=== PATIENT | female | born 1930 | race Caucasian/White ===

== ENCOUNTER 2018-09-25 12:11 | Inpatient (IN) ==
[2018-09-25] MEDS ORDERED: DIPRIVAN 1% ONE (12:39)
[2018-09-25] MEDS ORDERED: XYLOCAINE-MPF 2% ONE (12:40)
[2018-09-25] MEDS ORDERED: LR 1,000 ML ONE (12:46)
--- NOTE | 2018-09-25 16:03 | HISTORY AND PHYSICAL ---
HISTORY: Ms. Ami Nguyen is an 87-year-old white female who has been experiencing mostly left- sided abdominal pain and also blood per rectum. Today, she was undergoing a colonoscopy per Dr. Morales which documented a colon cancer at the splenic flexure. We were asked to evaluate her for possible resection. Despite her age, she remains mentally intact. She lives with her in [place], and has a caregiver. PAST MEDICAL HISTORY: She has had breast cancer and underwent a mastectomy. After that surgery, she went to rehab for several weeks. She has also had an open cholecystectomy through an upper midline incision. Evidently, has had orthopedic surgery. She has had an appendectomy. MEDICATIONS: Include blood pressure medications, vitamins, calcium, and she takes insulin 12/17 7 units daily. She also takes Pepcid. ALLERGIES: No known drug allergies. SOCIAL HISTORY: She lives in [place]. She has a caregiver. Her is 89 years of age. FAMILY HISTORY: She has colon cancer in her family. PHYSICAL EXAMINATION: On exam, Ms. Ami Nguyen is a frail elderly white female. She is awake and alert, and cooperative. She has no jaundice. No oral lesions. No cervical or supraclavicular lymphadenopathy. Her heart has regular rate. Lungs were clear to auscultation and percussion bilaterally. Her abdomen is slightly protuberant. She has a well-healed upper midline incision. No evidence of hernia. There was no tenderness. I could not feel this colon mass. She had no costovertebral tenderness. I did not do a rectal exam. She did have palpable femoral pulses. She has no significant peripheral edema. Neurologically, no focal deficit. I was present during the colonoscopy and saw the tumor. We believe that it is in the splenic flexure. She has had a previous ultrasound which also suggested a colon mass. PLAN: We discussed treatment options. Despite her age, she is still interested in resection. It is a near obstructing tumor, and it would improve her symptoms. She understands this is major intra-abdominal surgery, and she may have to go to rehab after the procedure. We certainly discussed risks of surgery, which include bleeding, infection, anastomotic leak. She understands she is at increased risk because of her age and weakness. She wants to proceed. We will plan to admit her to the hospital because she has already had a bowel prep. We will continue IV fluids. Make her n.p.o. after midnight, and plan to do her procedure tomorrow late morning. cc: Brenda Connelly MD
[2018-09-25] MEDS ORDERED: INVANZ 1 GM/NS 1 GM/50 ML IVPB IV ONE (17:00)
--- NOTE | 2018-09-25 17:20 | OPERATIVE NOTE ---
PROCEDURE DATE: 09/25/2018 PROCEDURE: Colonoscopy and biopsy. PREOPERATIVE DIAGNOSIS: Abnormal ultrasound. POSTOPERATIVE DIAGNOSIS: Tumor in the splenic flexure area, biopsied. HISTORY: This is an 87-year-old white female referred to me by Dr. Hilliard. She had an ultrasound of the abdomen done and a lesion was seen, suspected of colon mass. After lengthy discussion with the patient, it was decided to proceed with colonoscopy to get a better idea about the mass and depending on the findings, further plans made. DESCRIPTION OF PROCEDURE: Informed consent was obtained from the patient. Procedure, risks, benefits, alternatives were explained in layman's terms, she understood. All of her pertinent questions were answered. Patient was brought to the endoscopy unit and was premedicated as per Anesthesia. After adequate sedation, while she was lying in left lateral position, the digital rectal exam was performed which revealed some blood-tinged liquid in the rectum but no masses were was felt. Scope was then gently introduced into the rectum and advanced under direct vision into the colon. I did see some secretion with blood in it which was suctioned out easily. I was able to advance the scope all the way up to the splenic flexure where I saw a circumferential ulcerated mass and luminal stricture. The mass was about 8-10 cm long. With gentle pressure, I was able to passed through the mass into the proximal colon and I was able to advance it all the way up to the ascending colon. Further advancement was not possible because of the tortuosity and I did not want to apply any pressure at the flexure. The scope was withdrawn back into the mass. I did not see any polyps or tumors in the proximal colon prior to the mass. The mass was again located and multiple biopsies were obtained from the mass using a cold biopsy forceps. I used a sclerotherapy needle and injected Spot to nyla the area in aliquots of 0.5 mL and a total of 2 mL were injected in and around the mass to tattoo the area for future reference. The scope was then withdrawn into the rectum. Rectum was examined in both straight and retroflexed views, which revealed no pathology. Scope was then removed. Patient tolerated the procedure well. No complications noted. Patient was then transferred to the recovery area in a stable condition. IMPRESSION: Colon mass at the splenic flexure, biopsied and tattooed. I have discussed the case on the phone with the patient's and he was in agreement for possible surgical intervention if needed. I have spoken to Dr. Braden Connelly who has kindly consented to see the patient in the outpatient recovery area and after discussion, he will decide about surgery when it is mutually convenient. cc: MD Brenda Dang MD Sammy Becdach, MD MTDD
[2018-09-25] MEDS: LR 1,000 ML IV SCH ×2 (17:59→20:41)
[2018-09-25 18:53] LABS: URINE SOURCE CLEAN CATCH
[2018-09-25 18:56] LABS: BILIRUBIN URINE NEGATIVE (NEGATIVE); BLOOD URINE LARGE (NEGATIVE); COLOR YELLOW; GLUCOSE URINE NEGATIVE (NEGATIVE); KETONE URINE 60 mg/dL (NEGATIVE); LEUKOCYTES URINE SMALL (NEGATIVE); NITRITE URINE NEGATIVE (NEGATIVE); PH URINE 6.5; PROTEIN URINE TRACE mg/dL (NEGATIVE); SP GRAVITY URINE 1.016; TURBIDITY URINE CLEAR (CLEAR); UROBILINOGEN URINE NORMAL (NORMAL)
[2018-09-25 19:11] LABS: UR EPITHELIAL CELLS <10 /HPF (<10); URINE BACTERIA NEGATIVE /HPF; URINE RBC TNTC /HPF (<10); URINE WBC 20-40 /HPF (<10); URINE YEAST NONE SEEN
[2018-09-25] MEDS: ULTRAM PO PRN (22:43)
[2018-09-26] MEDS: CATAPRES PO SCH (08:02)
[2018-09-26] MEDS: COZAAR PO SCH (08:02)
[2018-09-26] MEDS: LR 1,000 ML IV SCH (08:02)
[2018-09-26] MEDS ORDERED: NIMBEX ONE (08:31)
[2018-09-26] MEDS ORDERED: QUELICIN (DOSE) ONE (08:51)
[2018-09-26] MEDS ORDERED: SODIUM CHLORIDE 0.9% 0 ML ONE (08:51)
[2018-09-26] MEDS ORDERED: XYLOCAINE-MPF 2% ONE (08:51)
[2018-09-26] MEDS ORDERED: ROBINUL ONE ×2 (08:51→12:59)
[2018-09-26] MEDS ORDERED: NEO-SYNEPHRINE ONE ×2 (08:51→13:03)
[2018-09-26] MEDS ORDERED: FENTANYL ONE (08:55)
[2018-09-26] MEDS ORDERED: DIPRIVAN 1% ONE (08:55)
[2018-09-26 10:34] LABS: HEMATOCRIT 32.4 % (37.0-47.0); MCH 27.7 PG (27-31); MCHC 30.9 g/dL (33-37); MCV 89.8 FL (81-99); MPV 8.9 FL (7.4-10.4); RBC 3.61 XMIL (4.2-5.4); RDW 14.6 % (11.5-14.5); WBC 14.07 X1000 (4.8-10.8)
[2018-09-26] MEDS ORDERED: SODIUM CHLORIDE 0.9% 10 ML ONE ×2 (10:39→11:51)
[2018-09-26] MEDS ORDERED: AMIDATE ONE (10:42)
--- NOTE | 2018-09-26 10:45 | EKG Report ---
Test Performed on : 09/26/2018 10:15:03 AM Test Reason : per op Blood Pressure : / mmHG Vent. Rate : 065 BPM Atrial Rate : 065 BPM P-R Int : 160 ms QRS Dur : 130 ms QT Int : 438 ms P-R-T Axes : 066 056 079 degrees QTc Int : 455 ms Sinus rhythm. with occasional premature ventricular complexes. Right bundle branch block Abnormal ECG No previous ECGs available Confirmed by Wilfred GILBERT, Eb Roberson ([id number]) on 09/27/2018 9:05:59 AM
[2018-09-26 11:15] LABS: AGAP 11; ALB/GLOB RATIO 0.8; ALBUMIN 2.7 g/dL (3.5-5.0); ALKALINE PHOSPHATASE 71 U/L (32-104); BUN 5 mg/dL (8-22); CALCIUM 8.1 mg/dL (8.8-10.2); CHLORIDE 105 mmol/L (98-107); COSMO 281; CREATININE 0.4 mg/dL (0.5-0.9); ESTIMATED GFR > 60; GLUCOSE 102 mg/dL (70-104); GOT 11 U/L (10-30); GPT 5 U/L (10-36); POTASSIUM 3.5 mmol/L (3.5-5.1); SODIUM 142 mmol/L (136-145); TCO2 26 mmol/L (25-35); TOTAL BILIRUBIN 0.29 mg/dL (0.20-1.00); TOTAL PROTEIN 6.3 g/dL (6.3-8.3)
[2018-09-26 11:29] LABS: PHOSPHORUS 0.8 mg/dL (2.7-4.5)
[2018-09-26] MEDS ORDERED: INVANZ 1 GM/NS 1 GM/50 ML IVPB IV ONE (11:30)
[2018-09-26] MEDS ORDERED: MARCAINE 0.25% ONE (11:51)
[2018-09-26] MEDS ORDERED: EXPAREL 1.3% ONE (11:52)
[2018-09-26] MEDS ORDERED: ZOFRAN ONE (12:59)
[2018-09-26] MEDS ORDERED: NEOSTIGMINE ONE (13:01)
[2018-09-26 13:10] LABS: URINE SOURCE CATH
[2018-09-26 13:14] LABS: BILIRUBIN URINE NEGATIVE (NEGATIVE); BLOOD URINE NEGATIVE (NEGATIVE); COLOR YELLOW; GLUCOSE URINE NEGATIVE (NEGATIVE); KETONE URINE 60 mg/dL (NEGATIVE); LEUKOCYTES URINE NEGATIVE (NEGATIVE); NITRITE URINE NEGATIVE (NEGATIVE); PROTEIN URINE TRACE mg/dL (NEGATIVE); TURBIDITY URINE CLEAR (CLEAR); UROBILINOGEN URINE NORMAL (NORMAL)
[2018-09-26 13:15] LABS: UR EPITHELIAL CELLS <10 /HPF (<10); URINE BACTERIA NEGATIVE /HPF; URINE RBC <10 /HPF (<10); URINE WBC <10 /HPF (<10)
[2018-09-26] MEDS: LASIX PO SCH (13:16)
[2018-09-26] MEDS: PEPCID PO SCH (13:16)
[2018-09-26] MEDS: MORPHINE ONE ×2 (14:34→14:42)
--- NOTE | 2018-09-26 14:44 | OPERATIVE NOTE ---
PROCEDURE DATE: 09/26/2018 PREOPERATIVE DIAGNOSIS: Colon cancer, splenic flexure. POSTOPERATIVE DIAGNOSIS: Colon cancer, splenic flexure. PRINCIPAL PROCEDURE: Open left hemicolectomy with takedown of the splenic flexure. SURGEON: Brenda Connelly MD ANESTHESIA: General. ESTIMATED BLOOD LOSS: 150 mL. DRAINS: None. INDICATIONS: Ami Nguyen is an 87-year-old white female who was having abdominal symptoms. She underwent colonoscopy yesterday by Dr. Morales, which documented a near-obstructing colon cancer at the splenic flexure. We discussed treatment options, and she has decided on resection. FINDINGS: She had a large bulky colon cancer at the splenic flexure. We were able to mobilize it and resect it, using a left hemicolectomy. We did an end midtransverse colon to end sigmoid colon double-layer sewn anastomosis. She did not have any evidence of metastatic spread intra- abdominally. She did not have any obviously enlarged lymph nodes. The tumor was not stuck to any surrounding tissue. DESCRIPTION OF PROCEDURE: The patient was brought to the operating room, placed supine, received general anesthesia, and was intubated. Actually she had some kyphosis of her back, and we had to elevate her head, which made this operation little bit more difficult because her abdomen was not totally extended. We placed a Loja catheter tube. Anesthesia did a TAP block. Her abdomen was prepped and draped in a sterile field. I used an Ioban on the skin. She had had a previous midline incision and I used the same scar to enter her abdomen. I used a #10 blade scalpel to incise the skin and then used the cautery to the go through the dermis and the subcutaneous tissue to the midline fascia, and then I entered the abdomen by incising the midline fascia using cautery. We had to take down some adhesions because of a previous cholecystectomy between the omentum and the anterior abdominal wall. She had a large bulky tumor at the splenic flexure and I began incising the retroperitoneum along the white line of Toldt, using cautery from distal towards the splenic flexure. I mobilized the descending colon up into our midline wound. I then came from the distal transverse colon. I entered the lesser sac by using the cautery to remove the greater omentum off the transverse colon and as I entered the lesser sac, I was able to mobilize the distal transverse colon and the hepatic flexure using the cautery. All of this was brought up into our midline wound and we used a NEMESIO stapler to come across the transverse colon, preserving the middle colic artery and then we came across the proximal sigmoid colon, preserving the inferior mesenteric vessels again with a reload of this NEMESIO stapler. I used the LigaSure to transect the omentum at its base of our specimen. The larger vessels, I used a Sharyn clamp and 2- 0 stick ties. The specimen was removed from the field. We made sure there was no bleeding in our bed of the left colon and splenic flexure and there was none. I performed an end-to-end double- layered sewn anastomosis between the transverse colon and the sigmoid colon. The posterior layer was interrupted 3-0 silk stitches, which was reinforced with an interlocking running 3-0 Vicryl stitch which was continued on the anterior wall as a Toshia stitch, and then I reinforced the anterior wall with interrupted 3-0 Lembert stitches. We thought the blood supply at our anastomosis was good, there was no tension on our anastomosis, and the caliber of the anastomosis was satisfactory. We closed the defect in the mesentery with interrupted 3-0 silk stitches. We placed the bowel back in its anatomically correct position, the omentum was placed over the surface of the bowel, and then I closed the midline fascia with a running #1 Maxon stitch. Any bleeding of the subcutaneous was controlled using cautery and then I closed the skin with a skin clip anesthesia technician, followed by Xeroform, dry dressing, and Medipore tape. She tolerated the procedure well with plans for her to go to the recovery room with her Loja catheter tube in place and be readmitted to the floor. Her is 89 years of age and was not present at the time. cc: Brenda Connelly MD
[2018-09-26] MEDS ORDERED: D5 1/2 NS + KCL 20 MEQ 1,000 ML ONE (15:09)
[2018-09-26] MEDS ORDERED: NORCO-7.5 PO PRN (16:17)
[2018-09-26] MEDS: D5 1/2 NS + KCL 20 MEQ 1,000 ML IV SCH (16:25)
[2018-09-26] MEDS: MORPHINE IV PRN ×2 (18:23→22:36)
[2018-09-27] MEDS: D5 1/2 NS + KCL 20 MEQ 1,000 ML IV SCH ×3 (04:20→18:08)
[2018-09-27] MEDS: MORPHINE IV PRN ×2 (04:20→08:49)
[2018-09-27] MEDS: COZAAR PO SCH (08:48)
[2018-09-27] MEDS: LASIX PO SCH (08:49)
[2018-09-27] MEDS: PEPCID PO SCH (08:49)
[2018-09-27] MEDS: CATAPRES PO SCH (08:49)
[2018-09-27] MEDS: HUMULIN 70/30 SUBQ SCH (08:51)
[2018-09-27] MEDS: OFIRMEV 1000 MG/ISOTONIC SOLN 1,000 MG/100 ML BOTTLE IV SCH ×2 (12:22→18:05)
--- NOTE | 2018-09-27 12:37 | PROGRESS NOTE ---
DATE: 09/27/2018 SUBJECTIVE: Ms Ami Nguyen is now postop day 2 from an open left hemicolectomy for colon cancer of the splenic flexure. This morning, she seems comfortable and she is awake. Talkative. Her abdomen is mostly soft. Her wound is dressed. Her heart rate 79, blood pressure 90/45. O2 saturation 100% on 2 L nasal cannula O2. Her T-max is 99.3 degrees. She has a Loja catheter tube in place. Her urine output is satisfactory. PLAN: We will remove her Loja tomorrow. We will begin clear liquids and Lovenox. We will try to limit her pain medicine. cc: Brenda Connelly MD
[2018-09-28] MEDS: OFIRMEV 1000 MG/ISOTONIC SOLN 1,000 MG/100 ML BOTTLE IV SCH ×4 (00:50→17:59)
--- NOTE | 2018-09-28 08:09 | GENERAL SURGERY PROGRESS NOTE ---
DATE: 09/28/2018 SUBJECTIVE: Patient seems to be doing okay. She has had a little bit of nausea. OBJECTIVE: Vital Signs: Patient is currently afebrile. Her vital signs are stable. General: No acute distress. Cardiovascular: Regular rate and rhythm. Lungs: Grossly clear. Abdomen: Soft, appropriately tender. ASSESSMENT AND PLAN: An 87-year-old status post open left hemicolectomy with takedown of splenic flexure. Postoperative state. At this time patient is currently postoperative day #2. She has a little bit of nausea, so will not try to advance her diet, trying to get her a little bit mobile. She is going to have her Loja catheter removed today or at least put the patient on SCDs for anticoagulant and see how the patient does. Also make sure the patient is on incentive spirometer. cc: MD Brenda Campbell MD
[2018-09-28] MEDS: D5 1/2 NS + KCL 20 MEQ 1,000 ML IV SCH (08:59)
[2018-09-28] MEDS: COZAAR PO SCH (09:01)
[2018-09-28] MEDS: LASIX PO SCH (09:01)
[2018-09-28] MEDS: PEPCID PO SCH (09:01)
[2018-09-28] MEDS: CATAPRES PO SCH (09:01)
[2018-09-28] MEDS: HUMULIN 70/30 SUBQ SCH (09:02)
[2018-09-28] MEDS: ZOFRAN PO PRN (18:01)
[2018-09-28] MEDS: ULTRAM PO PRN (20:40)
[2018-09-29] MEDS: OFIRMEV 1000 MG/ISOTONIC SOLN 1,000 MG/100 ML BOTTLE IV SCH ×4 (00:44→18:18)
[2018-09-29] MEDS: ZOFRAN PO PRN (05:13)
[2018-09-29] MEDS: ULTRAM PO PRN (05:13)
[2018-09-29] MEDS: D5 1/2 NS + KCL 20 MEQ 1,000 ML IV SCH (06:03)
--- NOTE | 2018-09-29 07:05 | GENERAL SURGERY PROGRESS NOTE ---
DATE: 09/29/2018 SUBJECTIVE: Patient seems to be doing all right. She is still a bit sick to her stomach. She did have a bowel movement recorded. OBJECTIVE: Vital Signs: The patient is currently afebrile. Her vital signs are stable. General Examination: No acute distress. Cardiovascular: Regular rate and rhythm. Lungs: Grossly clear. Abdomen: Soft. Appropriately tender. ASSESSMENT/PLAN: An 87-year-old female status post open left hemicolectomy with takedown of splenic flexure. Postoperative state. At this time, the patient seems to be doing okay, although she has had some persistent nausea. We will advance her to a full liquid diet. She has sequential compression devices on for anticoagulation. She still seems somewhat frail and we will hold off on any kind of subcutaneous heparin coagulation but we will start her today on some heparin. She is several days out from her procedure. I do not think she is very mobile. Given her frail nature, we will check a CBC in the morning after starting her anticoagulation. Otherwise, continue routine postoperative care. Dr. Connelly will be back tomorrow. cc: MD Brenda Campbell MD
[2018-09-29] MEDS: CATAPRES PO SCH (08:36)
[2018-09-29] MEDS: COZAAR PO SCH (08:36)
[2018-09-29] MEDS: LASIX PO SCH (08:36)
[2018-09-29] MEDS: HEPARIN SUBQ SCH ×2 (08:36→15:23)
[2018-09-29] MEDS: HUMULIN 70/30 SUBQ SCH (08:37)
[2018-09-29] MEDS: PEPCID PO SCH (13:02)
--- NOTE | 2018-09-29 14:26 | GASTROENTEROLOGY PROGRESS NOTE ---
DATE: 09/29/2018 SUBJECTIVE: Ms. Nguyen was resting comfortably. She reported no GI symptoms. SUBJECTIVE: Vital signs: Stable. Temperature 97.8 degrees, pulse 66, breathing 16, blood pressure 141/50. Abdomen: Postsurgical. Clean dressing. Abdomen is otherwise soft, appropriately tender. Bowel sounds are audible. LABS: Reviewed. Blood glucose level today was 138. IMPRESSION AND PLAN: Colorectal cancer, status post colon resection and anastomosis. She is recovering from surgery and has done well so far. At this point, no new suggestions. I will be following her peripherally. If needed, will be available. Patient will be seen at the office after discharge. cc: MD Brenda Dang MD
[2018-09-30] MEDS: D5 1/2 NS + KCL 20 MEQ 1,000 ML IV SCH (00:02)
[2018-09-30] MEDS: OFIRMEV 1000 MG/ISOTONIC SOLN 1,000 MG/100 ML BOTTLE IV SCH ×2 (00:02→05:51)
[2018-09-30] MEDS: HEPARIN SUBQ SCH ×4 (00:02→22:10)
--- NOTE | 2018-09-30 08:11 | PROGRESS NOTE ---
DATE: 09/30/2018 SUBJECTIVE: Ms. Nguyen is now postop day 5 from an open left hemicolectomy for colon cancer. She has had some nausea reported over the weekend, but she is eating about 75% of her meals. She does have a bowel movement recorded. This morning, she is resting comfortably. OBJECTIVE: Vital Signs: Her heart rate is 63, blood pressure 164/66, O2 saturation 100%, she is afebrile. Skin: Midline wound is intact. Abdomen: Mostly soft. PLAN: Will stop morphine and IV Tylenol. Will also stop her IV fluids. Advance her diet. I feel at discharge, she will have to go to a rehab hospital. cc: Brenda Connelly MD
[2018-09-30 08:27] LABS: BASO# 0.01 X1000 (0.0-0.2); BASO% 0.1 % (0.0-0.8); EOS# 0.18 X1000 (0.0-0.7); EOS% 1.2 % (0.0-10.0); HEMATOCRIT 32.8 % (37.0-47.0); HEMOGLOBIN 10.1 g/dL (12.0-16.0); IMM GRAN# 0.07 X1000 (0.0-0.04); IMM GRAN% 0.5 % (0.0-0.5); LYMPH# 0.81 X1000 (1.2-3.4); LYMPH% 5.2 % (20.5-51.1); MCH 28.6 PG (27-31); MCHC 30.8 g/dL (33-37); MCV 92.9 FL (81-99); MONO# 0.48 X1000 (0.11-0.59); MONO% 3.1 % (1.7-9.3); MPV 9.8 FL (7.4-10.4); NEUT# 13.89 X1000 (1.4-6.5); NEUT% 89.9 % (42.2-75.2); PLT 267 X1000 (130-400); RBC 3.53 XMIL (4.2-5.4); RDW 14.6 % (11.5-14.5); WBC 15.44 X1000 (4.8-10.8)
[2018-09-30] MEDS: HUMULIN 70/30 SUBQ SCH (10:00)
[2018-09-30] MEDS: COZAAR PO SCH (10:00)
[2018-09-30] MEDS: CATAPRES PO SCH (10:00)
[2018-09-30] MEDS: PEPCID PO SCH (10:00)
[2018-09-30] MEDS: LASIX PO SCH (10:01)
[2018-09-30] MEDS: ULTRAM PO PRN (22:08)
[2018-10-01] MEDS: PEPCID PO SCH (08:42)
[2018-10-01] MEDS: COZAAR PO SCH (08:42)
[2018-10-01] MEDS: CATAPRES PO SCH (08:42)
[2018-10-01] MEDS: HUMULIN 70/30 SUBQ SCH (08:42)
[2018-10-01] MEDS: LASIX PO SCH (08:42)
[2018-10-01] MEDS: HEPARIN SUBQ SCH ×2 (09:30→17:00)
--- NOTE | 2018-10-01 10:23 | PROGRESS NOTE ---
DATE: 10/01/2018 Ms. Ami Nguyen is an 87-year-old white female who is status post open left hemicolectomy for colon cancer. Her postoperative convalescence has been normal. She is now eating. She has had several bowel movements. Her abdomen is still a little bit distended. Her midline incision seems to be healing well without complication. Physical therapy is working with her and moving her around. I feel at discharge, she needs to go to rehab hospital temporarily and then she plans to return home with her 90-year-old . I spoke with the social work lecturer today about discharge options. She is on a soft diet and will continue physical therapy. cc: Brenda Connelly MD
[2018-10-02] MEDS: HEPARIN SUBQ SCH ×2 (00:36→09:09)
[2018-10-02] MEDS: ULTRAM PO PRN (00:37)
[2018-10-02] MEDS: CATAPRES PO SCH (08:50)
[2018-10-02] MEDS: LASIX PO SCH (08:50)
[2018-10-02] MEDS: PEPCID PO SCH (08:51)
[2018-10-02] MEDS: COZAAR PO SCH (08:51)
[2018-10-02] MEDS: HUMULIN 70/30 SUBQ SCH (08:51)
--- NOTE | 2018-10-02 09:38 | DISCHARGE SUMMARY ---
ADMISSION DATE: 09/27/2018 DISCHARGE DATE: 10/02/2018 ADMITTING DIAGNOSIS: Colon cancer, splenic flexure. DISCHARGE DIAGNOSIS: Colon cancer, splenic flexure. PRINCIPAL PROCEDURE: Open left hemicolectomy on 09/26/2018. DISCHARGE DISABILITY: Full. DISCHARGE DISPOSITION: She will be going to a rehab facility with the plan of getting her back home. DISCHARGE MEDICATIONS: She is to return to her home medications. DISCHARGE DIET: Regular. HOSPITAL COURSE: Ms. Ami Nguyen is an 87-year-old white female who underwent colonoscopy per Dr. Morales on 09/25/2018. It was noted that she had a bulky colon cancer at the splenic flexure which was near obstructing. Her bowel was prepped and therefore she was admitted after this colonoscopy for resection. The following day, she went to the operating room and underwent an open left hemicolectomy with primary double-layer end-to-end sewn anastomosis between the mid transverse colon and the rectum. No other intra-abdominal pathology or metastatic spread of this tumor was recognized. We felt she did well during the surgery. An NG tube was not used. She did have a Loja catheter tube in place and she went to the recovery room and then to the [address] [place] [address] paulino where we feel that her postoperative convalescence was normal. She is elderly and certainly frail but we were able to advance her diet slowly from liquids to a soft diet. Her midline incision was intact and healing well without complication. We feel that her yee need to stay at least another week. She was able to get up with assistance to go to the bathroom. She had some bowel movements. She was tolerating her soft diet well and she had no undue abdominal tenderness. We feel we can send her to rehab without pain medication. On discharge her heart rate is 60, blood pressure 149/56, O2 saturation is 98%. She was afebrile on no antibiotics. She is eating 50 to 75% of her meals. She had not had a bowel movement in the last 24 hours but the day prior she had several bowel movements. She was off all IV pain medications and was taking Ultram as needed. PLAN: The plan is for her to go to rehab hospital. It would be nice to have her skin clips from her midline incision removed about a week from today. I will follow her up in our outpatient offices after discharge from the rehab hospital. Plans are for her to go home with her 90-year- old after rehab. They do have truss driver helper at home. cc: Brenda Connelly MD
[2018-10-02 12:33] VITALS: BP 139/54
== END 2018-10-02 16:10 | DRG 331 ==
LOC: ENDO 12:11 → INTOOBSV 15:15 → DIRADM 15:15 → 3N 16:28
PROVIDERS: ADMIT Surgery; ATTEND Surgery
CPT/HCPCS: 80053; 81001; 82948; 83735; 84100; 85025; 85027; 86850; 86900; 86901; 86920; 87088; 88305; 88309; 88313; 93005; 93010; 94761; 94799; 97116; 97162; 97530; A9270; C9290; J0131; J0330; J1335; J1644; J2270; J2370; J2405; J3010; J3480; J7120; S0020; XXXXX

== ENCOUNTER 2018-10-07 10:42 | Inpatient (IN) ==
[2018-10-07] MEDS ORDERED: ZOFRAN IV PRN (13:28)
--- NOTE | 2018-10-07 14:08 | EKG Report ---
Test Performed on : 10/07/2018 1:52:37 PM Test Reason : chest pain Blood Pressure : / mmHG Vent. Rate : 063 BPM Atrial Rate : 063 BPM P-R Int : 170 ms QRS Dur : 130 ms QT Int : 464 ms P-R-T Axes : 008 002 008 degrees QTc Int : 474 ms Sinus rhythm. with premature atrial complexes. Right bundle branch block Abnormal ECG When compared with ECG of 26-SEP-2018 10:15, premature ventricular complexes. are no longer present premature atrial complexes. are now present T wave inversion now evident in Inferior leads T wave inversion no longer evident in Anterior leads Confirmed by Wilfred GILBERT, Eb Roberson ([id number]) on 10/08/2018 9:19:28 AM
--- NOTE | 2018-10-07 14:14 | Diag Imaging Result Doc PS360 ---
EXAM: KUB ABDOMEN HISTORY: recent abd sx, TECHNIQUE: Portable supine abdomen single view COMPARISON: None. FINDINGS: There are multiple midline skin yee. No bowel obstruction. No organomegaly. There is scoliosis with degenerative spine changes. IMPRESSION: No abnormality identified. Electronically signed by Yazan Dyer 10/07/2018 2:12 PM
--- NOTE | 2018-10-07 14:28 | Diag Imaging Result Doc PS360 ---
EXAM: CHEST-PORTABLE HISTORY: R/O PNA TECHNIQUE: Chest single view COMPARISON: None. FINDINGS: The lungs are well expanded. The heart is not enlarged. The vessels are not distended. There are minimal increased markings in the lower lungs. No consolidation. No effusion identified. IMPRESSION: Small basilar infiltrates versus fibrosis. Electronically signed by Yazan Dyer 10/07/2018 2:25 PM
[2018-10-07] MEDS ORDERED: PNEUMOVAX 23 IM ONE (14:30)
[2018-10-07] MEDS ORDERED: MAXIPIME 1 GM in NS 50 ML IV SCH (14:45)
[2018-10-07] MEDS ORDERED: ZYVOX 600 MG/D5W 600 MG/300 ML IVPB IV SCH (14:45)
[2018-10-07 14:50] LABS: BASO# 0.01 X1000 (0.0-0.2); BASO% 0.1 % (0.0-0.8); EOS# 0.09 X1000 (0.0-0.7); EOS% 0.6 % (0.0-10.0); HEMATOCRIT 29.3 % (37.0-47.0); HEMOGLOBIN 8.9 g/dL (12.0-16.0); IMM GRAN# 0.09 X1000 (0.0-0.04); IMM GRAN% 0.6 % (0.0-0.5); LYMPH# 1.43 X1000 (1.2-3.4); LYMPH% 9.1 % (20.5-51.1); MCHC 30.4 g/dL (33-37); MCV 92.1 FL (81-99); MONO# 0.72 X1000 (0.11-0.59); MONO% 4.6 % (1.7-9.3); MPV 10.1 FL (7.4-10.4); NEUT# 13.41 X1000 (1.4-6.5); PLT 191 X1000 (130-400); RBC 3.18 XMIL (4.2-5.4); WBC 15.75 X1000 (4.8-10.8)
[2018-10-07 14:54] LABS: INR 0.98; PROTIME 13.7 Seconds (11.0-16.0)
[2018-10-07 15:15] LABS: AGAP 6; ALB/GLOB RATIO 1.1; ALBUMIN 2.4 g/dL (3.5-5.0); ALKALINE PHOSPHATASE 56 U/L (32-104); BUN 9 mg/dL (8-22); CHLORIDE 96 mmol/L (98-107); COSMO 272; CREATININE 0.4 mg/dL (0.5-0.9); ESTIMATED GFR > 60; GLUCOSE 114 mg/dL (70-104); GOT 17 U/L (10-30); GPT 9 U/L (10-36); MAGNESIUM 1.9 mg/dL (1.5-2.7); POTASSIUM 3.8 mmol/L (3.5-5.1); SODIUM 136 mmol/L (136-145); TCO2 34 mmol/L (25-35); TOTAL BILIRUBIN 0.38 mg/dL (0.20-1.00); TOTAL PROTEIN 4.6 g/dL (6.3-8.3)
--- NOTE | 2018-10-07 15:23 | HISTORY AND PHYSICAL ---
PRIMARY CARE PROVIDER: Dr. Link Sorenson in [place]. GENERAL SURGEON: Brenda Connelly MD. MAINTENANCE MECHANIC ELEVATORS: Fabian Hilliard MD. GASTROENTEROLOGY: Hernandez Morales MD. CHIEF COMPLAINT: High white count. HISTORY OF PRESENT ILLNESS: Ms. Nguyen is an 87-year-old female who carries a past medical history of breast cancer with mastectomy, hypertension, macular degeneration, neuropathy, diabetes, I believe left knee replacement, arthritis who had recently undergone an open left hemicolectomy on 09/26/[address] Connelly for colon cancer in the splenic flexure. She was sent to [facility], on 10/02/2018. We received a call from Stephane Ford, the PA there, who stated she had an elevated white count of 22. They did not check a lactate or any imaging. He reported no bowel sounds, however, she has very active bowel sounds and a soft abdomen. Has no complaints. She states she did really 1 day of physical therapy and physical therapy came in and worked with her while she was lying in the bed today. Further reports she was afebrile, somewhat hypotensive at 172/88. She states she has really not had any appetite. She had nausea several days ago and was given an enema recently. She does have some minimal incisional pain. However, incision does not looked infected. Her clips are still in place. She states that she did eat the first day or two, but not much since. She will be admitted to work up this white count. We will have Dr. Soto follow up on imaging. All imaging has been ordered and pending. PAST MEDICAL HISTORY: 1. Hypertension. 2. Macular degenerative disease. 3. Diabetes. 4. Breast cancer. 5. Colon cancer. 6. Neuropathy. PAST SURGICAL HISTORY: 1. Appendectomy. 2. Cholecystectomy. 3. Complete left knee replacement. 4. Recent open left hemicolectomy on 09/26/[address] Connelly for colon cancer. SOCIAL HISTORY: She lives at home with her 90-year-old . They do have dye room helper and have had dye room helper for many years. No alcohol, tobacco, or illicit drug use. She has gotten around with a walker for several years. She is not very active at home. Again, they have a hired caregiver who does a lot of their work for them. ALLERGIES: No known drug allergies. HOME MEDICATIONS: Have not been reconciled; however, she was discharged on calcium, Catapres, Pepcid, Lasix, insulin, losartan, vitamin D3, Protonix, MiraLAX, tramadol, Ocuvite, Boniva, however, this is not an updated and confirmed list. PHYSICAL EXAMINATION: VITAL SIGNS: Temperature is 98.5 degrees axillary, heart rate 65, respirations 16, blood pressure 115/57, O2 is 97% on room air. GENERAL: Ms. Nguyen is a pleasant 87-year-old female who is sitting up in the bed in no acute distress. She generally appears pale. HEENT: Atraumatic, normocephalic. PERRL. NECK: Supple. Trachea midline. CARDIOVASCULAR: S1, S2 appreciated. No murmurs, gallops, rubs noted. RESPIRATORY: Lung sounds clear bilaterally. GASTROINTESTINAL: Soft, nontender, nondistended. Positive bowel sounds in 4 quadrants. No tenderness to palpation. She did have a midline incision that did not appear to be infected. Her clips are still in place. SKIN: Warm, dry, and intact. See incisional above. NEUROLOGIC: No focal deficits noted. She was alert and oriented x4. Follows commands. Moves all extremities. DIAGNOSTIC AND LABORATORY DATA: Currently pending. ASSESSMENT AND PLAN: 1. Leukocytosis. We will check labs, imaging, urinalysis to rule out for any infection. She does not seem to have any incisional infection. We are checking chest x-ray and KUB. We will start antibiotics if appropriate. She denies any recent fever, chills, cough. 2. Nausea for several days without any appetite. Consider failure to thrive. We will place her on diet after we have all our labs and imaging back. 3. Known colon cancer in the splenic flexure. She is status post open left hemicolectomy on 09/26/[address] Connelly. He is currently out of town. We will ask Dr. Soto to assess the wound for possible yee removal next day or 2 and will keep her correctional officer lieutenant, Dr. Hilliard in the loop. 4. Diabetes mellitus. Will do patterned sugars with sliding scale insulin. 5. Hypertension. Patient is now normotensive. 6. Macular degeneration. Aware. 7. Previous breast cancer with mastectomy. 8. Arthritis. 9. Further recommendations to follow physician evaluation, laboratory and diagnostic data. Dictated by MICHEAL Mitchell for Dhaval Carranza MD cc: MD Brenda Ulloa MD Matthew L. Figh, MD Khurshid Yousuf, MD James Walker Sammy Becdach, MD I agree with most components of history, physical, assessment and plan. A separate addendum has been dictated. MTDD
[2018-10-07] MEDS ORDERED: AMBIEN PO PRN (15:32)
[2018-10-07] MEDS ORDERED: MIRALAX PO PRN (15:32)
[2018-10-07] MEDS ORDERED: ULTRAM PO PRN (15:32)
[2018-10-07] MEDS ORDERED: LR 1,000 ML IV SCH (15:45)
[2018-10-07] MEDS: LEVAQUIN 750 MG/D5W 750 MG/150 ML IVPB IV SCH (16:04)
[2018-10-07] MEDS: HUMALOG SUBQ SCH ×2 (16:11→22:42)
[2018-10-07 16:34] LABS: URINE SOURCE CLEAN CATCH
[2018-10-07 16:36] LABS: BILIRUBIN URINE NEGATIVE (NEGATIVE); BLOOD URINE SMALL (NEGATIVE); COLOR YELLOW; GLUCOSE URINE 70 mg/dL (NEGATIVE); KETONE URINE NEGATIVE (NEGATIVE); LEUKOCYTES URINE SMALL (NEGATIVE); NITRITE URINE NEGATIVE (NEGATIVE); PH URINE 7.5; PROTEIN URINE TRACE mg/dL (NEGATIVE); SP GRAVITY URINE 1.008; TURBIDITY URINE HAZY (CLEAR); UROBILINOGEN URINE NORMAL (NORMAL)
[2018-10-07 16:51] LABS: UR EPITHELIAL CELLS <10 /HPF (<10); URINE BACTERIA NEGATIVE /HPF; URINE CASTS NONE SEEN; URINE CRYSTALS NONE SEEN; URINE SMALL ROUND CELLS NONE SEEN; URINE WBC 20-40 /HPF (<10); URINE YEAST NONE SEEN
[2018-10-07 17:07] LABS: IRON SATURATION 36 %; TIBC 161 ug/dL; TOTAL IRON 58 ug/dL (49-151); UNBOUND IRON 103 ug/dL (112-346)
--- NOTE | 2018-10-07 17:22 | HISTORY AND PHYSICAL ---
ADDENDUM: I agree with most components of history, physical, assessment, and plan. In brief, Ms. Nguyen is an 87-year-old lady with past medical history of colon mass detected on colonoscopy, status post left-sided hemicolectomy and end-to-end anastomosis on 09/26/2018, hypertension, GERD, insulin-dependent diabetes mellitus, who was recently discharged to rehab 5 days ago after her left hemicolectomy and sent back to the hospital for reported nausea, lethargy, hypertension, and failure to thrive. History was obtained partially from the patient, partially from the report given by the rehab. On arrival, the patient is normotensive and though she is drowsy, she is arousable. SUBJECTIVE: Patient denies any chest pain, shortness of breath, cough. She has been feeling a little nauseous. She admits of really low appetite and decreased physical activity over last 5 days. She also states that she has not had a bowel movement in about 3 or 4 days at least. VITALS: Suggestive of temperature of 98.5 degrees, pulse 65, respiratory rate 16, blood pressure 115/57, saturating 97% on room air. PHYSICAL EXAMINATION: GENERAL: Cachectic appearing lady not in any acute distress. HEENT: Oral cavity is dry. LUNGS: Air entry bilaterally equal. No wheeze or rhonchi. She does have bilateral infrascapular crackles, more pronounced on the right side. ABDOMEN: Soft. There are yee of laparotomy. Tympanic to percussion. Active bowel sounds. No undue tenderness. EXTREMITIES: No lower extremity edema. LABORATORY DATA: 1. Suggestive of leukocytosis, normocytic anemia, normal platelet count. 2. Electrolytes are within acceptable range except hypoalbuminemia. MICROBIOLOGY: Blood cultures are in lab. ASSESSMENT: 1. Bilateral lower lobe pneumonia. 2. Nausea. 3. Essential hypertension. 4. Failure to thrive with protein energy malnutrition. 5. Recent history of left hemicolectomy. PLAN: I will start patient on intravenous fluid resuscitation. I will start her on intravenous levofloxacin for bilateral lower lobe pneumonia. We will resume most of her home medication including losartan for hypertension, stool softeners. I will keep her on sliding scale insulin. We will await final blood culture and data, and we will keep her on IV antibiotics and will further decide about disposition accordingly. Plan of care discussed with her. All of her questions have been answered. cc: Dhaval Carranza MD MTDD
--- NOTE | 2018-10-07 18:42 | GENERAL SURGERY CONSULTATION ---
DATE: 10/07/2018 REQUESTING PHYSICIAN: Hospitalist service. REASON FOR CONSULT: Concerning leukocytosis, status post colectomy by Dr. Connelly. HISTORY OF PRESENT ILLNESS: An 87-year-old female who recently had open left hemicolectomy by Dr. Connelly for colon cancer at the splenic flexure. She apparently had been at rehab since then after being discharged. She apparently was noted to have a leukocytosis. Patient reports that she had some imaging done in [place], but I am unable to get that information at the moment. Given this, she was transferred over here for further management. She has been evaluated and admitted by the hospitalist, and given her leukocytosis, she has been started on antibiotics. I was asked to weigh an opinion. She is currently denying any kind of abdominal pain. She has not had much to eat, but has not really been passing gas either. PAST MEDICAL HISTORY: Includes: 1. Hypertension. 2. Macular degenerative disease. 3. Diabetes. 4. Breast cancer. 5. Colon cancer. 6. Neuropathy. PAST SURGICAL HISTORY: Includes: 1. Recent hemicolectomy. 2. Appendectomy. 3. Cholecystectomy. 4. Left knee replacement. SOCIAL HISTORY: Denies alcohol, tobacco, or illicit drugs. Recently admitted to rehab. ALLERGIES: None. HOME MEDICATIONS: Reviewed. REVIEW OF SYSTEMS: Full 10 point review of systems obtained and negative except as specified in HPI. PHYSICAL EXAMINATION: Vital Signs: Patient is currently afebrile. Her vital signs are stable. General: No acute distress. HEENT: Normocephalic, atraumatic. Pupils equal, round, reactive to light. Mucous membranes moist. Oropharynx benign. Neck: Supple. Trachea midline. Cardiovascular: Regular rate and rhythm. Lungs: Grossly clear. Abdomen: Soft, nontender, nondistended. Incision is well healed with yee in place. No signs of erythema. Extremities: Moves all extremities. Neurologic: Grossly intact. Skin: No signs of jaundice. Vascular: All extremities perfused. LABORATORY: White blood cell count 15, hematocrit 29, platelet count 191,000. Remainder of labs reviewed. IMAGING: Imaging, including abdominal x-ray, reviewed and nonspecific. ASSESSMENT AND PLAN: An 87-year-old female with leukocytosis, status post hemicolectomy. 1. Leukocytosis. At this time, the etiology is unclear. By report, the patient did have a CT scan done at [place]. Would like to try to get those images, or at least the report, to see if she has any intraabdominal issue. Otherwise, recommend continued current treatment. Her incision looks like it is well healed. There are no signs of infection, so I am okay with the nurses removing the yee at this point and placing Steri-Strips. 2. Multiple medical comorbidities, currently being managed by the hospitalist. cc: Donovan Soto MD
[2018-10-07] MEDS: PERICOLACE PO SCH (22:47)
[2018-10-07] MEDS: OSCAL 500 PO SCH (22:47)
[2018-10-08 06:36] LABS: BASO# 0.01 X1000 (0.0-0.2); BASO% 0.1 % (0.0-0.8); EOS# 0.07 X1000 (0.0-0.7); EOS% 0.8 % (0.0-10.0); HEMATOCRIT 27.8 % (37.0-47.0); HEMOGLOBIN 8.3 g/dL (12.0-16.0); IMM GRAN# 0.06 X1000 (0.0-0.04); IMM GRAN% 0.7 % (0.0-0.5); LYMPH# 0.82 X1000 (1.2-3.4); LYMPH% 9.3 % (20.5-51.1); MCH 27.5 PG (27-31); MCHC 29.9 g/dL (33-37); MCV 92.1 FL (81-99); MONO# 0.51 X1000 (0.11-0.59); MONO% 5.8 % (1.7-9.3); MPV 10.1 FL (7.4-10.4); NEUT# 7.38 X1000 (1.4-6.5); NEUT% 83.3 % (42.2-75.2); PLT 151 X1000 (130-400); RBC 3.02 XMIL (4.2-5.4); RDW 15.8 % (11.5-14.5); WBC 8.85 X1000 (4.8-10.8)
[2018-10-08] MEDS: HUMALOG SUBQ SCH ×3 (07:02→16:30)
[2018-10-08 07:04] LABS: AGAP 4; ALBUMIN 2.2 g/dL (3.5-5.0); ALKALINE PHOSPHATASE 51 U/L (32-104); BUN 11 mg/dL (8-22); CHLORIDE 94 mmol/L (98-107); COSMO 261; CREATININE 0.5 mg/dL (0.5-0.9); ESTIMATED GFR > 60; GLUCOSE 84 mg/dL (70-104); GOT 13 U/L (10-30); GPT 7 U/L (10-36); POTASSIUM 3.9 mmol/L (3.5-5.1); SODIUM 131 mmol/L (136-145); TCO2 33 mmol/L (25-35); TOTAL BILIRUBIN 0.37 mg/dL (0.20-1.00); TOTAL PROTEIN 4.5 g/dL (6.3-8.3)
[2018-10-08] MEDS: PERICOLACE PO SCH ×2 (09:00→20:16)
[2018-10-08] MEDS ORDERED: COZAAR PO SCH (09:00)
[2018-10-08] MEDS ORDERED: CATAPRES PO SCH (09:00)
[2018-10-08] MEDS: PEPCID PO SCH (09:04)
[2018-10-08] MEDS: FERROUS SULFATE PO SCH (09:04)
[2018-10-08] MEDS: COZAAR PO SCH (09:04)
[2018-10-08] MEDS: FEMARA PO SCH (09:05)
[2018-10-08] MEDS: OSCAL 500 PO SCH ×2 (09:05→20:16)
--- NOTE | 2018-10-08 11:18 | GENERAL SURGERY PROGRESS NOTE ---
DATE: 10/08/2018 SUBJECTIVE: Patient seems to be doing okay. No major issues. OBJECTIVE: Vital Signs: Patient is currently afebrile. Vital signs are stable. General: No acute distress. Cardiovascular: Regular rate and rhythm. Lungs: Grossly clear. Abdomen: Soft, nontender, nondistended. Incision healing well, yee removed. ASSESSMENT AND PLAN: An 87-year-old female status post left hemicolectomy, now with leukocytosis. Leukocytosis. At this time, continue antibiotics. Awaiting images from [facility]. If we do get not images in the next several days, may consider repeat CT scan. We will start her on a clear liquid diet right now. cc: Donovan Soto MD
--- NOTE | 2018-10-08 12:43 | PROGRESS NOTE ---
DATE: 10/08/2018 INTERVAL HISTORY: No acute events overnight. Her vitals have been unremarkable. Her yee have been removed. Her wound has been healing well. She states that she has been coughing with bringing up some sputum. The nurse had concern about swallowing, and I ordered swallowing evaluation. We discussed about discontinuing clear liquid diet. I also discussed with the nursing team, as the patient was concerned about lost insurance cards and her Medicare cards to help her get copies of that. CT scan report from outside facility suggests she did have abnormal anatomy of intestine underneath the wound; however, there was no obstruction documented. There was subcutaneous hematoma or seroma formation. Currently she denies any chest pain or shortness of breath. She is coughing with whitish expectoration. OBJECTIVE: Vital signs: Temperature is 97.9, pulse 64, respiratory rate 17, blood pressure 137/58, saturation 94% on room air. General: She does not appear in any acute distress. Oral cavity is moist. Air entry bilaterally equal. No wheeze or rhonchi. Bilateral infrascapular crackles, more pronounced on the right site. Abdomen is soft. Amite have been removed. The incision is well healed. Tympanitic to percussion. No undue tenderness. No lower extremity edema. She is alert and oriented x3. She appears more energetic today than she did yesterday. DIAGNOSTIC DATA: Labs suggestive of resolution of leukocytosis, normocytic anemia, normal platelet count. Hyponatremia, hypochloremia, normal kidney function. Iron panel is suggestive of anemia of chronic disease. Her urine culture has mixed alfredito. Blood cultures are still in the lab. Urine antigens are pending. ASSESSMENT AND PLAN: 1. Bilateral lower lobe pneumonia. Continue intravenous levofloxacin. Follow up with the final blood culture, sputum culture and urine antigens. 2. 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 The final results of biopsy of hemicolectomy are pending. Continue clear liquid diet as per Surgery recommendations and follow up CT scan images which I assume have been requested by the surgeon doctor, considering the report had reported poor anatomy of intestines. Continue Zofran as needed for vomiting and MiraLAX and senna to avoid constipation. Her yee have been removed. 3. Essential hypertension. Currently normotensive. I will continue her losartan. 4. Failure to thrive with protein calorie malnutrition. Continue clear liquid diet and advance as tolerated. Follow up with speech evaluation. 5. Others. Continue famotidine for chronic GERD, ferrous sulfate for microcytic anemia, likely it could be related to iron deficiency because of her colonic mass. However, iron studies suggest ferritin level is high. DISPOSITION: I will continue to monitor the patient outside the hospital as I await final blood culture and sputum culture results. Plan of care discussed with her. All of her questions have been answered. I would anticipate discharge depending on her clinical course in the next [address] [facility] [place]. cc: Dhaval Carranza MD MTDD
[2018-10-08] MEDS: LEVAQUIN 750 MG/D5W 750 MG/150 ML IVPB IV SCH (14:32)
[2018-10-09] MEDS: HUMALOG SUBQ SCH ×4 (06:48→22:52)
--- NOTE | 2018-10-09 09:02 | GENERAL SURGERY PROGRESS NOTE ---
DATE: 10/09/2018 Reviewed notes from other physicians and reviewed CT scan report from [place]. It did talk about some degree of abnormal configuration of her bowel, but I think this is more likely how they are interpreting her recent hemicolectomy. There are no signs of intra- abdominal abscess. Her incision was doing well. From a surgical point of view, nothing new to add. Will follow peripherally at this point. cc: Donovan Soto MD [facility]
[2018-10-09] MEDS: PERICOLACE PO SCH ×2 (09:45→20:30)
[2018-10-09] MEDS: OSCAL 500 PO SCH ×2 (09:50→20:30)
[2018-10-09] MEDS: COZAAR PO SCH (09:50)
[2018-10-09] MEDS: FEMARA PO SCH (09:50)
[2018-10-09] MEDS: FERROUS SULFATE PO SCH (09:50)
[2018-10-09] MEDS: PEPCID PO SCH (09:50)
--- NOTE | 2018-10-09 10:33 | PROGRESS NOTE ---
DATE: 10/09/2018 HOSPITAL COURSE SUMMARY: Ms. Nguyen is an 87-year-old, lady who had a left-sided hemicolectomy about 2 weeks ago for splenic flexure poorly differentiated adenocarcinoma of colon and she was discharged to [facility], who has been resent to the hospital because of lethargy, elevated white cell count, and is found to have bilateral pneumonia. Currently, she is being treated for pneumonia. Initially, there were concerns of some intra-abdominal abscess but after surgery reviewing of the CAT scan report, it looks like they were only postoperative changes and no other surgical interventions have been planned. Her yee have already been removed. OVERNIGHT EVENTS: The patient did not have any acute events. Speech evaluation is pending. SUBJECTIVE: Patient denies any nausea, vomiting, or abdominal pain. She has been drinking liquids without any trouble. She is passing gas. She has not had a bowel movement yet. VITALS: Temperature 97.7 degrees, pulse 60, respiratory rate 18, blood pressure 145/69. She is saturating 93% on room air. PHYSICAL EXAMINATION: She does not appear in any acute distress. Oral cavity is moist. Lungs: Air entry bilaterally equal. She does have mild inspiratory crackles in the bilateral infrascapular region without any wheeze or rhonchi. S1 and S2 are normal. Systolic murmur, crescendo-decrescendo, best heard over the base of the heart and 2nd intercostal space, both right and left, without any radiation. No rub or gallop. Abdomen is soft. Incision of recent hemicolectomy appears to be well healed. Mild tenderness, gaseous distention, tympanic with percussion without undue tenderness. Active bowel sounds. No lower extremity edema. She is alert and oriented x3. LABS: No CBC or BMP today. MICROBIOLOGY: Blood culture has not shown any growth. ASSESSMENT AND PLAN: 1. Bilateral lower lobe pneumonia. Continue intravenous levofloxacin and follow up final blood culture and urine antigens. She has not been able to make enough sputum. 2. History of poorly differentiated adenocarcinoma of splenic flexure of the colon, status post left hemicolectomy on September 27. Advance diet to a gastrointestinal soft diet and follow up with speech/language pathology recommendation. Follow up with speech therapy recommendation. Continue MiraLAX to avoid constipation, with senna. Surgery was on board and has removed her yee. No other further surgical plans for her. She should follow up with hematology/oncology outpatient once the final results of the colectomy specimen comes back. 3. Essential hypertension, currently normotensive and only mildly hypertensive. I will continue current dose of losartan. 4. Others. Failure to thrive and protein calorie malnutrition. Continue gastrointestinal soft diet, speech evaluation, physical therapy; continue famotidine for chronic gastroesophageal reflux disease; ferrous sulfate for microcytic anemia which could be related to iron deficiency because of a colonic mass, though the ferritin level was high. 5. Disposition. The patient appears to be hemodynamically stable. If she is tolerating the gastrointestinal soft diet well and has a bowel movement tomorrow, then we can consider discharging her back to [facility]. Plan of care discussed with the patient and all of her questions have been answered satisfactorily. cc: Dhaval Carranza MD
--- NOTE | 2018-10-09 11:42 | HEMO/ONC CONSULTATION ---
DATE: 10/08/2018 ADMITTING PHYSICIAN: Dr. Carranza. REQUESTING PHYSICIAN: Dr. Carranza. We appreciate this consult. CHIEF COMPLAINT: Colon cancer. HISTORY OF PRESENT ILLNESS: Ms. Ami Nguyen is a very pleasant, 87-year-old, female with a history of breast cancer, status post mastectomy, hypertension, macular degeneration, neuropathy, and diabetes. The patient was recently diagnosed with colon cancer of the splenic flexure. She underwent hemicolectomy on 09/26/[address] Connelly. The patient was immediately sent to rehabilitation at [facility] on 10/02/2018. However, the patient began to have a rise in her white blood cell count to 22,000. The patient returned to [facility] secondary to leukocytosis with a significant decrease in appetite and failure to thrive. The patient was admitted for the same. We are consulted secondary to a recent diagnosis of colon cancer. PAST MEDICAL HISTORY: As in HPI. PAST SURGICAL HISTORY: 1. Appendectomy. 2. Cholecystectomy. 3. Left knee replacement. 4. Recent open left hemicolectomy on 09/26/[address] Connelly. SOCIAL HISTORY: The patient does not use tobacco, alcohol, or illicit drugs. She lives at home with her 90-year-old . She does have a hired caregiver. MEDICATIONS ON ADMISSION: 1. Calcium. 2. Catapres. 3. Pepcid. 4. Lasix. 5. Insulin. 6. Losartan. 7. Vitamin D3. 8. Protonix. 9. MiraLAX. 10. Tramadol. 11. Ocuvite. 12. Boniva. ALLERGIES: The patient no known drug allergies. REVIEW OF SYSTEMS: A 14 point review of systems was obtained and is negative except for mentioned in the HPI. PHYSICAL EXAMINATION: Ms. Nguyen is a pleasant, 87-year-old female, lying supine in bed in no immediate distress. Vital Signs: Temperature 97.9 degrees, blood pressure 137/58, heart rate 64, respirations 17, O2 saturation 94% on room air. HEENT: Normocephalic, atraumatic. Mucous membranes are pale and moist. Sclerae anicteric. Extraocular movements intact. Neck: Supple. Lungs: Clear to auscultation bilaterally. Chest expansion equal bilaterally. CV: S1 and S2 are heard without murmur, rub, or gallop. Abdomen: Soft and tender to palpation at the incision site. Bowel sounds are positive in all quadrants. No rebound or guarding is noted. Extremities: With trace bilateral lower extremity edema. Dermatologic: No rashes, bruises, or lesions. Neurologic: The patient is awake, alert, and oriented x3. She has no focal deficits. LABORATORY DATA: Hemoglobin 8.3, hematocrit 27.8, white blood cell count 8.85, platelets 151,000. Sodium 131, potassium 3.9, chloride 94, CO2 is 33, BUN 11, creatinine 0.5, glucose is 84, and calcium 8.0. ASSESSMENT AND PLAN: 1. Colon cancer of the splenic flexure. Of note, the patient does have a history of breast cancer with mastectomy. She was treated at an outlying facility. The patient is status post left hemicolectomy on 09/26/2018. We will attempt to attempt to obtain workup and pathology. We will review all records with the treatment plan to follow. 2. Bilateral lower lobe pneumonia. Currently on antibiotics. 3. Nausea without vomiting. Resolved at this time. 4. Failure to thrive. The patient was in rehabilitation. Physical therapy is currently following. Plan is to discharge the patient to rehabilitation again. 5. We will follow along with you and make further recommendations pending outcomes. The above reflects the history, exam, assessment, and plan of Dr. Hilliard. Dictated by MICHEAL Vale for Fabian Hilliard MD cc: MICHEAL Vale MD
[2018-10-09] MEDS: LEVAQUIN 750 MG/D5W 750 MG/150 ML IVPB IV SCH (15:24)
[2018-10-10] MEDS: HUMALOG SUBQ SCH ×2 (06:54→12:08)
[2018-10-10 07:37] VITALS: BP 174/53
[2018-10-10] MEDS ORDERED: MIRALAX PO SCH (09:00)
[2018-10-10] MEDS: COZAAR PO SCH (09:14)
[2018-10-10] MEDS: FEMARA PO SCH (09:14)
[2018-10-10] MEDS: PERICOLACE PO SCH (09:14)
[2018-10-10] MEDS: PEPCID PO SCH (09:14)
[2018-10-10] MEDS: FERROUS SULFATE PO SCH (09:14)
[2018-10-10] MEDS: OSCAL 500 PO SCH (09:14)
--- NOTE | 2018-10-10 12:45 | DISCHARGE SUMMARY ---
ADMISSION DATE: 10/07/2018 DISCHARGE DATE: 10/09/2018 DISPOSITION: Back to [facility]. FOLLOWUP: Will be with Dr. Connelly. CONSULTATION DURING THIS ADMISSION: Surgery was consulted. Patient was seen by Dr. Soto. INVASIVE PROCEDURES DONE DURING THIS ADMISSION: None. IMAGING STUDIES OF SIGNIFICANCE: 1. A KUB on admission was unremarkable. 2. A chest x-ray shows small bibasilar infiltrates. ASSESSMENT AT THE TIME OF ADMISSION: 1. Bilateral lower lobe pneumonia. 2. Nausea. 3. Hypertension. 4. Failure to thrive. DISCHARGE DIAGNOSES: 1. Bilateral lower lobe pneumonia. 2. Recently diagnosed adenocarcinoma of the sigmoid colon status post an open left hemicolectomy with takedown of the splenic flexure. Pathology on that shows a poorly differentiated adenocarcinoma most consistent with breast as primary. 3. The patient has a history of breast cancer status post mastectomy. 4. Hypertension. 5. Constipation, improved. 6. Severe osteoarthritis. DISCHARGE MEDICATIONS: 1. Clonidine 0.2 p.o. daily. 2. Famotidine 40 mg daily. 3. Insulin NPH 7 units in the morning. 4. 2.5 p.o. daily. 5. Losartan 25 mg p.o. daily. 6. Tramadol 50 mg q.6 p.r.n. 7. Zolpidem. 8. MiraLAX 17 g p.o. daily. 9. Senokot. 10. Levofloxacin 500 p.o. daily for 5 days. 11. Iron sulfate. PRESENTING COMPLAINT: Elevated white cell count. HISTORY OF PRESENTING COMPLAINT: Ms. Nguyen is an 87-year-old elderly female who was discharged from the hospital to [facility] on 10/02/2018 after a left hemicolectomy for colon mass. We understand that over there she had developed an elevated white cell count, so she was brought in and was evaluated and admitted. During the hospital course, Ms. Nguyen imaging studies did reveal bilateral lower lobe infiltrate. She was treated for pneumonia, white cell count got normalized. Never had any fever. This morning she feels a whole lot better. She has been tolerating about 50% of her meals. We think she is fairly stable for discharge. She is going to go back to [facility]. She will complete the antimicrobial therapy for a total of 7 days. She has 5 more to go and she will continue with treatment for her other comorbidities. All the discharge instructions have been discussed with Ms. Nguyen who voiced understanding despite she was quite hesitant, wanted to go back to the rehab. cc: Soto Shore MD [facility]
== END 2018-10-10 14:04 | DRG 178 ==
LOC: SUATTDRO 10:42 → DIRADM 10:42 → 4N 10:53
PROVIDERS: ATTEND Internal Medicine
CPT/HCPCS: 71010; 71045; 74000; 74018; 80053; 81001; 82550; 82728; 82948; 83540; 83550; 83605; 83735; 84484; 85025; 85610; 87040; 87088; 87449; 87899; 90732; 93005; 93010; 94761; 94799; 97162; 97530; A9270; J0692; J1815; J1956; J7120; XXXXX